=== PATIENT | female | born 1990 | race Caucasian/White ===

== ENCOUNTER 2017-04-12 08:23 | Emergency (ER) | payer MEDICAID ==
[~2017-04-12 08:23] MED LIST: MOTRIN-DPS800 MG PO; NIPPLECREAM TP; PRENATAL VIT1 TAB PO; TYLENOL #3 DPS1 TAB PO
--- NOTE | 2017-04-23 21:33 | ER ---
ADMIT: 04/12/2017 RM/LOC: ER [facility] MR#: [id number] [address] [address] ZENA GUZMAN [address] [place] [address] Emergency Room Report SEX: F AGE: 27 : 1990 DATE: 04/12/2017 ADDENDUM: CHIEF COMPLAINT: Vaginal bleeding. HISTORY OF PRESENT ILLNESS: This is a 27-year-old female who had a spontaneous complete . I did speak with Dr. Torres, he will follow up on this patient this week. DISPOSITION: She is stable at discharge. I did tell her to return if she is bleeding through 2 pads in 2 consecutive hours. DARELL Jones / David Serrato MD / modl JOB #: [id number] CC: Nixon Mcgovern MD, Attending Physician Kelsey Cruz MD, Family Physician
== END 2017-04-12 13:05 | disposition home or self-care (01) ==
LOC: ER 08:23
DX: O03.9 Complete or unspecified spontaneous abortion without complication (principal); Z3A.13 13 weeks gestation of pregnancy

== ENCOUNTER 2017-04-21 05:43 | Day surgery (SDC) | payer MEDICAID ==
[~2017-04-21] VITALS: Ht 160 cm; Wt 114.9 kg
--- NOTE | 2017-05-22 09:31 | OR ---
ADMIT: 04/21/2017 RM/LOC: [facility] MR#: [id number] [address] [address] Z[address] GU[address] [place] [address] Operative/Delivery Room Report SEX: F AGE: 27 : 1990 SURGERY DATE: 04/21/2017 SURGEON: Kelsey Cruz MD NAME OF THE PROCEDURE: Dilation and curettage. PREOPERATIVE DIAGNOSIS: Retained products of conception. POSTOPERATIVE DIAGNOSIS: Retained products of conception. FINDINGS: 1. Uterus sounded to 13 cm. 2. Retained products of conception were obtained with curettage. ESTIMATED BLOOD LOSS: 350 mL. ANESTHESIA: General. COMPLICATIONS: None. INDICATIONS FOR PROCEDURE: The patient is a 27-year-old female who had presented to the emergency room on 04/12/2017, with at approximately 12 weeks gestation with complaints of pain and bleeding. The patient was noted to pass what appeared to be a fetus in the emergency room. Ultrasound at that time showed no gestational sac and endometrial stripe was noted be 2.5 cm. The patient then presented to the office on 04/20/2017, with complaints of episodes of heavy vaginal bleeding. Ultrasound performed in the office showed endometrial stripe of approximately 5 cm with findings consistent with retained products of conception. The patient was counseled regarding treatment options, and wished to proceed with dilation and curettage. DESCRIPTION OF PROCEDURE: The patient was taken to the operating room, where a general anesthesia was obtained without difficulty. The patient was placed in dorsal lithotomy position in candy-cane stirrups and prepped and draped in usual sterile fashion. The bladder was drained of clear urine prior to procedure. A weighted speculum was placed in the patient's vagina and a right angle retractor was used for visualization of the cervix. The patient's cervix was grasped with a single-tooth tenaculum. The cervix was then sounded to 12 cm. At this point, a 12 mm suction curette was advanced into the ADMIT: 04/21/2017 RM/LOC: [facility] MR#: [id number] [address] [address] ZENA GUZMAN [address] [place] [address] Operative/Delivery Room Report SEX: F AGE: 27 : 1990 endometrium. Moderate amount of blood and tissue was obtained with suction curettage. At this point, polyp forceps were introduced into the uterus and several large pieces of placenta were obtained with polyp forceps. Suction was again performed. It did not appear that any further tissue was obtained, and so, a sharp curettage was performed in all 4 quadrants until a gritty texture was noted. A few more passes were taken with the suction curette. No further tissue was obtained. At this point, all instruments were removed from the patient's vagina. The patient was given one dose of Methergine intramuscularly in the operating room. At the end of the procedure, the patient's cervix appeared hemostatic and there was no bleeding from the cervix. The patient tolerated the procedure well. All sponge and needle counts were correct. The patient went to recovery in stable condition. Kelsey Cruz MD/ mya JOB #: [id number] CC: Kelsey Cruz, Attending Physician NO FAMILY PHYSICIAN, Family Physician
--- NOTE | 2017-05-29 08:35 | HP ---
ADMIT: 04/21/2017 RM/LOC: [facility] MR#: [id number] [address] [address] ZENA GUZMAN [address] [place] [address] Pre-OP History and Physical SEX: F AGE: 27 : 1990 DATE OF SERVICE: HISTORY OF PRESENT ILLNESS: The patient is a 27-year-old 6 para 3-0-2- 3, who originally presented to the emergency room on 04/12/2017 with complaints of pain and bleeding. The patient per emergency room reports apparently past approximately 12-week fetus and had bleeding in the emergency room. Ultrasound was performed at that time, which showed no intrauterine and endometrium measuring 2.5 cm. The patient followed up on 04/20/2017 for followup in the office. She stated she still has had episodes of very heavy bleeding where she often soaks through pads. Pelvic ultrasound was performed and endometrial thickness was noted to be approximately 5 cm with a large amount of debris and possible retained products of the fundus of the uterus. Due to this, treatment options were discussed, and the patient desired surgical management with dilation and curettage. The patient states that she had an ultrasound at [facility] which made her approximately 12 weeks at the time of spontaneous rupture. PAST MEDICAL HISTORY: History of gastric reflux. PAST SURGICAL HISTORY: None. CURRENT MEDICATIONS: None. ALLERGIES: NO KNOWN MEDICAL ALLERGIES. FAMILY HISTORY: Noncontributory. SOCIAL HISTORY: The patient is single. She denies any alcohol, tobacco, or drug use. PHYSICAL EXAMINATION: GENERAL: The patient is alert and oriented, in no acute distress. HEART: Regular rate and rhythm without murmurs, gallops, or rubs. LUNGS: Clear to auscultation bilaterally. ABDOMEN: Soft, nontender, and nondistended with positive bowel sounds. EXTREMITIES: No edema. No calf tenderness. Pelvic ultrasound, no intrauterine gestational sac. Endometrial thickness of ADMIT: 04/21/2017 RM/LOC: [facility] MR#: [id number] [address] [place] [address] ZENA GUZMAN [address] [place] [address] Pre-OP History and Physical SEX: F AGE: 27 : 1990 approximately 5 cm with large amount of clots and possible products of conception within the uterine cavity. ASSESSMENT: A 27-year-old 6, para 3-0-2-3 status post spontaneous at approximately 12 weeks gestation with a suspected retained products of conception. PLAN: After reviewing treatment options, the patient wishes to proceed with dilation and curettage. The risks, benefits, and alternatives of surgery including, but not limited to the risk of bleeding, possibly requiring a blood transfusion, risk of infection, risk of injury to bowel or bladder have been discussed with the patient. She wishes to proceed. Kelsey Cruz MD/ mya JOB #: [id number] CC: Kelsey Cruz, Attending Physician UNKNOWN, Family Physician
== END 2017-04-21 11:30 | disposition home or self-care (01) ==
LOC: SSS 05:43
PROC: 10D17ZZ Extraction of Products of Conception, Retained, Via Natural or Artificial Opening (ICD-10-PCS; principal; 2017-04-21)
DX: O03.4 Incomplete spontaneous abortion without complication (principal); K21.9 Gastro-esophageal reflux disease without esophagitis; Z3A.12 12 weeks gestation of pregnancy; Z79.899 Other long term (current) drug therapy